=== PATIENT | female | born 2005 | race Hispanic/Latino ===

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

== ENCOUNTER 2023-12-05 16:25 | Emergency (ER) | payer MEDICAID ==
[~2023-12-05] VITALS: Ht 160 cm; Wt 90.7 kg
[2023-12-05 16:37] VITALS: BP 131/79; PULSE 92; RESP 18
[2023-12-05] MEDS: KETOROLAC 15MG/ML VIAL (15MG/ML) IM STA (17:00)
[2023-12-05] MEDS ORDERED: IBUP-2077 PO (18:08)
== END 2023-12-05 19:17 | disposition home or self-care (01) ==
LOC: EDH 16:25
DX: S00.83XA Contusion of other part of head, initial encounter (principal); X58.XXXA Exposure to other specified factors, initial encounter; Y93.89 Activity, other specified; Y92.89 Other specified places as the place of occurrence of the external cause; Y99.8 Other external cause status
CPT/HCPCS: 99283; 70110; 96372; J1885